=== PATIENT | female | born 1970 | race Caucasian/White ===

== ENCOUNTER 2018-09-11 13:37 | Emergency (ER) | payer BC, OTHER ==
[~2018-09-11] VITALS: Ht 165.1 cm; Wt 99.8 kg
[2018-09-11 13:47] VITALS: BP 138/62
== END 2018-09-11 15:50 | disposition home or self-care (01) ==
LOC: ER 13:43
DX: L02.414 Cutaneous abscess of left upper limb (principal); Z98.51 Tubal ligation status